=== PATIENT | male | born 1985 | race Caucasian/White ===

== ENCOUNTER 2017-12-08 20:03 | Inpatient (IN) | payer OTHER ==
[~2017-12-08] VITALS: Ht 185.4 cm; Wt 147.4 kg
[~2017-12-08 20:03] MED LIST: HYDROCHLOROTH12.5 M1 PO; LISINOPRIL2.5 MG PO
[2017-12-08] MEDS ORDERED: TOPROL XL100 MG PO (20:08)
[2017-12-08] MEDS ORDERED: NORVASC10 MG PO (20:08)
[2017-12-08 20:25] LABS: ABSOLUTE BASOPHILS 0.1 thou/uL (0.0-0.2); ABSOLUTE EOSINOPHILS 0.2 thou/uL (0.0-0.7); ABSOLUTE LYMPHOCYTES 2.9 thou/uL (0.8-5.3); ABSOLUTE MONOCYTES 0.8 thou/uL (0.0-1.2); ABSOLUTE NEUTROPHILS 5.7 thou/uL (1.6-8.1); BASOPHILS 0.7 %; EOSINOPHILS 2.4 %; HEMATOCRIT 50.8 % (42.0-52.0); HEMOGLOBIN 17.4 gm/dL (14.0-18.0); LYMPHOCYTES 29.7 %; MCH 29.6 pg (26.0-34.0); MCHC 34.3 g/dL (28.0-37.0); MCV 86.4 fL (80.0-100.0); MONOCYTES 8.1 %; NUCLEATED RBCS 0 /100WBC; PLATELET COUNT* 243 thou/uL (150-400); POLYS 59.1 %; RBC 5.87 mil/uL (4.50-6.00); RDW-CV 13.5 % (10.5-14.5); WBC 9.7 thou/uL (4.0-11.0)
[2017-12-08 20:31] LABS: ANION GAP 11 mmol/L (7-16); BUN 15 mg/dL (7-18); CALCIUM 8.9 mg/dL (8.5-10.1); CHLORIDE 99 mmol/L (98-107); CO2 26 mmol/L (21-32); CREATININE 1.1 mg/dL (0.6-1.3); GLUCOSE 114 mg/dL (70-99); POTASSIUM 3.3 mmol/L (3.5-5.1); SODIUM 136 mmol/L (136-145)
[2017-12-08 20:34] LABS: APTT 27.3 Seconds (25.0-31.3); INR 1.1; PROTIME 10.4 Seconds (9.20-11.50)
[2017-12-08 20:51] LABS: ALBUMIN 4.5 g/dL (3.4-5.0); ALKALINE PHOSPHATASE 73 U/L (46-116); CK-MB MASS 0.6 ng/mL (<0.5-3.6); LIPASE 134 U/L (73-393); MAGNESIUM 1.9 mg/dL (1.8-2.4); NT-PRO BRAIN NAT PEPTIDE 84 pg/mL (<300); SGOT 37 U/L (15-37); SGPT 43 U/L (30-65); TOTAL BILIRUBIN 0.8 mg/dL (<0.1-1.0); TOTAL PROTEIN 8.8 g/dL (6.4-8.2); TROPONIN-I LEVEL <0.06 ng/mL (<0.06)
[2017-12-08 21:35] VITALS: BP 158/89
[2017-12-08 22:30] VITALS: BP 192/96
[2017-12-08 23:00] VITALS: BP 175/104
[2017-12-08 23:30] VITALS: BP 163/88
[2017-12-09] VITALS (16 sets, daily range): BP systolic 119–176; BP diastolic 34–117
--- NOTE | 2017-12-09 00:51 | NUR ---
PT ADMITTED TO ICU AT 2150. PT ADMITTED FOR VENTRICULAR ARRYTHMIAS. CARDIOLOGY CONSULTED WITH CALL BACK. RECIEVED PRDERS FOR AMIODARONE BOLUS FOLLOWED BY DRIP. RECIEVED ORDERS FOR NPO AFTER MIDNIGHT, ECHO IN AM, SERIAL TROPONIN, 40 MEQ KCL X 1DOSE AND PRN CLONADINE. PT ANXIOUS UPON ARRIVAL. HOME MEDICATIONS DISCUSSED AND EVENTS LEADING TO ADMISSION. EXPLAINED PHARMACOLOGY OF AMIODARONE IN SIMPLE TERMS. ASSURED PT THAT ARRYTHMIA WOULD BE RESOLVED WITH IV AMIODARONE INFUSION. PT LESS ANXIOUS AT THIS TIME. MONITOR SHOWS OCCASIONAL ECTOPY, BLOOD PRESSURE NO LONGER ELEVATED. ALLOWED PT'S TO STAY IN ROOM TO HELP ALLLEVIATE PT'S FEAR. CALL LIGHT IN REACH, PT USING APPROPRIATELY
--- NOTE | 2017-12-09 05:43 | NUR ---
pt progressing toward goals. pt recieved amiodarone bolus followed by drip at 1MG/KG/MIN. drip reduced to 0.5MG/KG/MIN per protocol. pt's heart rhythm sinus rhythm with occasional bigeminy and PVC'S. blood pressure within normal limits since amio bolus given.
[2017-12-09 07:24] LABS: APTT 27.9 Seconds (25.0-31.3); INR 1.1; PROTIME 10.6 Seconds (9.20-11.50)
[2017-12-09 07:27] LABS: ALBUMIN 3.9 g/dL (3.4-5.0); ALKALINE PHOSPHATASE 61 U/L (46-116); ANION GAP 7 mmol/L (7-16); BUN 11 mg/dL (7-18); CALCIUM 8.4 mg/dL (8.5-10.1); CHLORIDE 103 mmol/L (98-107); CHOLESTEROL 147 mg/dL (<200); CO2 29 mmol/L (21-32); CREATININE 0.9 mg/dL (0.6-1.3); GLUCOSE 98 mg/dL (70-99); HDL CHOLESTEROL 37 mg/dL (>40); LDL CHOLESTEROL 89 mg/dL (<100); POTASSIUM 3.6 mmol/L (3.5-5.1); SERUM ASSESSMENT Clear; SGOT 31 U/L (15-37); SGPT 41 U/L (30-65); SODIUM 139 mmol/L (136-145); TRIGLYCERIDE 107 mg/dL (<150); VLDL 21 mg/dL (<40)
--- NOTE | 2017-12-09 10:02 | NUR ---
Nutrition: Pt admitted with heart palpitations 2/2 BP RX adjustments x2 weeks. NPO currently. Consult received for "overweight, HTN." No significant labs. ADVANCE DIET TO HEART HEALTHY WHEN CLINICALLY ABLE. Will offer heart healthy and wt loss education once pt is off ICU. Follow up 12/11/17.
--- NOTE | 2017-12-09 12:00 | NUR ---
PATIENT ARRYTHMIAS HAVE DECREASED SIGNIFICANTLY SINCE ANTIARYTHMIC MEDICATION. PATIENT REPORTS HE FEELS MUCH BETTER AFTER TAKING MEDICATION.
--- NOTE | 2017-12-09 15:40 | NUR ---
REPORT GIVEN TO JAIRON GATES. PATIENT TRANSFERED TO ROOM 201 BY WHEELCHAIR WITH NURSING STAFF. ALL QUESTIONS ANSWERED. ALL MEDICATIONS, BELONGINGS, CHART SENT WITH PATIENT. PRESENT AT TRANSFER.
--- NOTE | 2017-12-09 17:01 | NUR ---
PT TRANSFERRED TO ROOM 201 VIA WHEELCHAIR FROM ICU AT APPROXIMATELY 1600. REPORT RECEIVED FROM YAJAIRA ERWIN. PT ORIENTED TO ROOM AND CALL LIGHT. THIS RN AGREES WITH PREVIOUS INTERNATIONAL TAX MANAGER. PT TRACING TRIGEMINY ON THE MARINE DESIGNER. PT ASYMPTOMATIC. PT A&0X4. DENIES ANY PAIN OR SHORTNESS OF BREATH AT THIS TIME. PT ON RA SAT UPPER 90'S. PT UP AD STEFANY. AT BEDSIDE. MEDICATIONS PER JUL. PT REPOSITIONS SELF. HOURLY ROUNDING OBSERVED. BED IN LOW POSITION. CALL LIGHT WITHIN REACH. WILL CONTINUE PLAN OF CARE.
[2017-12-10] VITALS: BP 177/90
--- NOTE | 2017-12-10 03:46 | NUR ---
PT ALERT ORIENTED. UP AD STEFANY IN ROOM. PT STATED HX OF ANXIETY WITH HTN. BP HIGH AT START OF SHIFT 176/111. SCHEDULED MEDS GIVEN. APPROX 2230 BP STILL ELEVATED 168/108. DR BLAKELY NOTIFIED. CLONIDINE SCHEDULED AND LORAZEPAM PRN ORDERD.CURRENT BP 146/84. PT RESTING QUIETLY. WILL CONTINUE TO MONITOR.
[2017-12-10 04:00] VITALS: BP 146/84
[2017-12-10 08:05] VITALS: BP 169/91
--- NOTE | 2017-12-10 08:05 | NUR ---
RECEIVED REPORT FROM COLLETTE AND ASSUMED CARE OF PT @ 9509.PT IS A/O,VSS,TRACING SR WITH PVC ON THE MONITOR.LUNG SOUNDS ARE CLEAR DIMINSHED.LAST BM WAS YESTERDAY.PT IS COOPERATIVE BUT ANXIOUS-MEDICATIONS GIVEN.NO C/O PAIN AT TIME OF ASSESSMENT.PT IS UP AD STEFANY IN ROOM.CALL LIGHT WITHIN REACH.WILL CONTINUE TO MONITOR.
[2017-12-10 12:19] VITALS: BP 181/114
--- NOTE | 2017-12-10 13:08 | CON ---
[address] [address] CONSULTATION Name: CALISTA VIDAL Room: [address] IN M.R.#: [id number] Admission: 12/08/17 Attend Phys: Fransisco Montanez MD Discharge: Date of : 87 Report #: [id number] THIS REPORT FOR: //name// CC: Fransisco Evans TYPE OF REPORT: Cardiology consultation. INDICATION: Hypertension and bigeminy. HISTORY OF PRESENT ILLNESS: The patient is a very pleasant 32-year-old gentleman with longstanding hypertension that is rather significant. He has been on multiple medications with cough with ANTONINA inhibitor and hives with losartan. He is currently on a combination of metoprolol and amlodipine. He continues to be hypertensive. He was admitted to the hospital with palpitations. He was found to be in bigeminy. He is not having chest pain. He denies shortness of breath. He is without other cardiac complaint. PAST MEDICAL HISTORY: Hypertension. ALLERGIES: AMOXICILLIN, LOSARTAN and LISINOPRIL. CURRENT MEDICATIONS: Metoprolol succinate 100 mg daily and amlodipine 10 mg daily. SOCIAL HISTORY: The patient smokes occasionally and drinks alcohol occasionally. FAMILY HISTORY: Noncontributory. There was a family history of hypertension. PHYSICAL EXAMINATION: VITAL SIGNS: Blood pressure 202/114 and pulse 109. Telemetry monitoring shows bigeminy. GENERAL: Mildly anxious, comfortable appearing gentleman, in no distress. Mood and affect slightly anxious. HEENT: Extraocular muscles intact. Mucous membranes moist. NECK: Shows no jugular venous distention. CHEST: Reveals clear lung ibrahim. CARDIOVASCULAR: Reveals a regular rhythm without gallop or murmur. ABDOMEN: Reveals normal bowel sounds. The abdomen is soft and nontender. EXTREMITIES: Shows no edema. Peripheral pulses 2+ and easily palpable. RADIOLOGICAL DATA: A 12-lead EKG shows sinus rhythm with PVCs in a pattern of bigeminy. LABORATORY DATA: Labs are reviewed. Sodium 139, potassium 3.6, chloride 103, [place] [address] CONSULTATION Name: CALISTA VIDAL Room: [address] IN [facility].#: [id number] Admission: 12/08/17 Attend Phys: Fransisco Montanez MD Discharge: Date of : 87 Report #: [id number] bicarbonate 29, BUN 11, creatinine 0.9 and serum glucose 98. LFTs within normal limits. Troponin less than 0.06. Total cholesterol 147, triglycerides 107, HDL 37 and LDL 89. Coags within normal limits. White blood cell count 9.7; hemoglobin 17.4 and platelet count 243,000. IMPRESSION AND RECOMMENDATIONS: 1. Symptomatic bigeminy. Obtaining echocardiogram. Quick look shows normal left ventricular function. We will switch from amiodarone to flecainide and a beta jaleesa in an effort to suppress premature ventricular contractions. Could consider ablation therapy if necessary. 2. Hypertension, etiology not clear. This is likely essential hypertension. We will obtain renal ultrasound to rule out renal artery stenosis. Labs otherwise appear unremarkable. Switching to carvedilol 12.5 mg twice daily. Continue clonidine as needed. <ELECTRONICALLY SIGNED> By: Jesse Nichols MD, FACC 12/10/17 1308 1038 [id number] Nichols MD, FACC /nt
--- NOTE | 2017-12-10 13:31 | EKG ---
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1985 Requested By: Raad Gaona Order Number: [id number] MD: Jesse Nichols Measurements Intervals [place] Rate: 135 P: 48 WV: 194 QRS: -13 QRSD: 96 T: 72 QT: 317 QTc: 476 Interpretive Statements Sinus rhythm Ventricular bigeminy Borderline prolonged WV interval Baseline wander in lead(s) II,III,aVF Compared to ECG 04/18/2017 11:17:44 Ventricular premature complex(es) now present ST (T wave) deviation no longer present Electronically Signed On 12-10-2017 13:31:33 CDT by Jesse Nichols [email or web address] <ELECTRONICALLY SIGNED> By: Jesse Nichols MD, FACC 12/10/17 1331 07 07 Jesse Nichols MD, FACC /EPI
--- NOTE | 2017-12-10 13:31 | EKG ---
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1985 Requested By: Raad Gaona Order Number: [id number] [place] MD: Jesse Nichols Measurements Intervals [place] Rate: 126 P: 61 DC: 190 QRS: 35 QRSD: 99 T: 76 QT: 328 QTc: 475 Interpretive Statements Sinus rhythm Ventricular bigeminy Compared to ECG 04/18/2017 11:17:44 Ventricular premature complex(es) now present ST (T wave) deviation no longer present Electronically Signed On 12-10-2017 13:31:41 CDT by Jesse Nichols [email or web address] <ELECTRONICALLY SIGNED> By: Jesse Nichols MD, FACC 12/10/17 1331 11 11 Jesse Nichols MD, FAC /EPI
--- NOTE | 2017-12-10 14:13 | NUR ---
Pt is A&O. Resides at home with his and kids. Independent with ADLs. No DME. No hx of HH or SNF. Goal is home at co. Following.
[2017-12-10 15:52] VITALS: BP 164/103
--- NOTE | 2017-12-10 19:52 | NUR ---
PT VSS,CARDIAC MONITORING IN PLACE WITH NO CHANGES THIS SHIFT.NO C/O PAIN.IV PATENT AND SALINE LOCKED.PT INFORMED OF PLAN OF CARE AND COMMUNICATES UNDERSTANDING.PT HAS BEEN ANXIOUS MOST OF SHIFT WITH MEDICATIONS GIVEN.UP AD STEFANY IN ROOM.SHOWER TAKEN THIS AFTERNOON.HOURLY ROUNDING COMPLETED FOR PT SAFETY.CALL LIGHT WITHIN REACH.WILL CONTINUE TO MONITOR FOR DURATION OF SHIFT. FAMILY HAS BEEN AT BEDSIDE.
[2017-12-11] VITALS: BP 131/79
[2017-12-11 04:00] VITALS: BP 135/69
--- NOTE | 2017-12-11 04:45 | NUR ---
PT HAS BEEN VERY ANXIOUS THIS SHIFT. RESP REG AND UNALBORED SKIN W/D NO ACUTE DISTRESS NOTED. TELEMETRY PACK INTACT WITH ALARMS SET. AT BEDSIDE. PT STATES HE NEEDS TO BE DCD TODAY, HE STATES HE IS MORE ANXIOUS WHEN IN HOSPITAL. VSS AND NO ACUTE CHANGES DURING SHIFT. WILL CONTINUE TO MONITOR
[2017-12-11 08:00] VITALS: BP 145/85
[2017-12-11] MEDS ORDERED: TRIAMTERENE-HC1 EAC1 PO (09:13)
[2017-12-11] MEDS ORDERED: FLECAINIDE ACET50 M1 PO (09:13)
[2017-12-11] MEDS ORDERED: CLONIDINE0.1 PO (09:13)
[2017-12-11 10:26] VITALS: BP 145/85
[2017-12-11] MEDS ORDERED: COREG25 MG PO (11:35)
--- NOTE | 2017-12-11 11:54 | NUR ---
ASSESSMENT COMPLETED REFER TO COMPUTER CHARTING. PRESS OPERATOR [employer] TRACKING SR WITH PVCS. PATIENT REPORTING NO PAIN, NAUSEA OR SHORTNESS OF BREATH. BED IN LOW AND LOCKED POSITION. CALL LIGHT WITHIN REACH. IV AND PRESS OPERATOR [employer] DISCONTINUED AND REMOVED. PATIENT REPORTING NO QUESTIONS OR CONCERNS.
--- NOTE | 2017-12-11 12:04 | NUR ---
Nutrition: RD spoke at length with pt about heart healthy diet, fish, oils, cooking tips, meal prep tips. Pt has lost 25# and is "getting back on track" to lose more wt. Pt very receptive to education and info. Asked many good questions. RD expects good compliance.
== END 2017-12-11 11:56 | disposition home or self-care (01) | DRG 309 ==
LOC: M.ERS 20:03 → M.ICU 21:06 → M.TBA-ER 21:06 → M.ICU 22:04 → M.2W 12-09 15:52
PROVIDERS: Family Medicine; Internal Medicine Cardiovascular Disease; ADMIT Internal Medicine
DX: I47.2 Ventricular tachycardia (principal); I16.1 Hypertensive emergency; Z68.41 Body mass index [BMI] 40.0-44.9, adult; R00.8 Other abnormalities of heart beat; I10 Essential (primary) hypertension; E66.9 Obesity, unspecified; F41.9 Anxiety disorder, unspecified; I49.3 Ventricular premature depolarization; Z79.899 Other long term (current) drug therapy; Z88.8 Allergy status to other drugs, medicaments and biological substances; Z88.1 Allergy status to other antibiotic agents; Z82.49 Family history of ischemic heart disease and other diseases of the circulatory system; Z83.3 Family history of diabetes mellitus; Z87.891 Personal history of nicotine dependence

== ENCOUNTER 2019-08-09 23:58 | Emergency (ER) | payer OTHER ==
[~2019-08-09] VITALS: Ht 185.4 cm; Wt 113.0 kg
[~2019-08-09 23:58] MED LIST changes: +CLONIDINE0.1 PO; +COREG25 MG PO; +FLECAINIDE ACET50 M1 PO; +NORVASC10 MG PO; +TOPROL XL100 MG PO; +TRIAMTERENE-HC1 EAC1 PO
[2019-08-10 00:40] LABS: CALCIUM 8.8 mg/dL (8.5-10.1); CREATININE 1.1 mg/dL (0.6-1.3); POTASSIUM 3.5 mmol/L (3.5-5.1)
[2019-08-10 00:45] LABS: ALBUMIN 3.9 g/dL (3.4-5.0); MAGNESIUM 1.8 mg/dL (1.8-2.4); TOTAL BILIRUBIN 0.5 mg/dL (<0.1-1.0); TOTAL PROTEIN 7.9 g/dL (6.4-8.2)
[2019-08-10 01:08] LABS: ABSOLUTE EOSINOPHILS 0.2 thou/uL (0.0-0.7); ABSOLUTE LYMPHOCYTES 2.2 thou/uL (0.8-5.3); ABSOLUTE MONOCYTES 0.6 thou/uL (0.0-1.2); ABSOLUTE NEUTROPHILS 4.3 thou/uL (1.6-8.1); BASOPHILS 0.5 %; EOSINOPHILS 2.6 %; HEMATOCRIT 46.4 % (42.0-52.0); HEMOGLOBIN 16.4 gm/dL (14.0-18.0); LYMPHOCYTES 30.2 %; MCH 30.7 pg (26.0-34.0); MCHC 35.3 g/dL (28.0-37.0); MONOCYTES 8.6 %; MPV 9.6 fl. (7.2-11.1); NUCLEATED RBCS 0 /100WBC; PLATELET COUNT* 235 thou/uL (150-400); POLYS 58.1 %; RBC 5.33 mil/uL (4.50-6.00); RDW-CV 13.3 % (10.5-14.5); WBC 7.4 thou/uL (4.0-11.0)
[2019-08-10 03:56] VITALS: BP 150/61
--- NOTE | 2019-08-10 09:39 | EKG ---
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1985 Requested By: Annalisa Herndon Order Number: [id number] MD: Quentin Schultz Measurements Intervals [place] Rate: 83 P: 41 UT: 208 QRS: 7 QRSD: 121 T: 25 QT: 387 QTc: 455 Interpretive Statements Sinus rhythm poor r wave progression Multiple ventricular premature complexes Borderline prolonged [place] interval Nonspecific intraventricular conduction delay ST elev, probable normal early repol pattern Compared to ECG 12/08/2017 20:12:17 bigeminey no longer seen Electronically Signed On 08-10-2019 9:38:08 CDT by Quentin Schultz [email or web address] <ELECTRONICALLY SIGNED> By: Quentin Schultz MD, FACC 08/10/19 0938 0005 0005 Quentin Schultz MD, [facility] /EPI
== END 2019-08-10 04:00 | disposition home or self-care (01) ==
LOC: M.ERS 23:58
PROVIDERS: Emergency Medicine
DX: R00.8 Other abnormalities of heart beat (principal); I10 Essential (primary) hypertension; Z87.891 Personal history of nicotine dependence; Z88.1 Allergy status to other antibiotic agents; Z88.8 Allergy status to other drugs, medicaments and biological substances